=== PATIENT | male | born 1940 | race Caucasian/White ===

== ENCOUNTER → 2021-06-20 09:48 | Outpatient (BNVA) | payer MEDICARE, SELFPAY | PROVIDERS: PCP Internal Medicine; Visit Provider Nurse Practitioner Family | DX: G25.9 Extrapyramidal and movement disorder, unspecified (principal); G47.33 Obstructive sleep apnea (adult) (pediatric); G62.9 Polyneuropathy, unspecified; F41.9 Anxiety disorder, unspecified | CPT/HCPCS: 99212 ==

== ENCOUNTER → 2021-10-11 13:10 | Outpatient (BNVA) | payer MEDICARE, SELFPAY | PROVIDERS: PCP Internal Medicine; Visit Provider Nurse Practitioner Family | DX: G25.9 Extrapyramidal and movement disorder, unspecified (principal); G62.9 Polyneuropathy, unspecified; G47.33 Obstructive sleep apnea (adult) (pediatric) | CPT/HCPCS: 99212 ==

== ENCOUNTER → 2022-01-24 13:04 | Outpatient (BNVA) | payer MEDICARE, SELFPAY | PROVIDERS: PCP Internal Medicine; Visit Provider Nurse Practitioner Family | DX: G25.9 Extrapyramidal and movement disorder, unspecified (principal); G47.33 Obstructive sleep apnea (adult) (pediatric); F41.9 Anxiety disorder, unspecified; Z79.899 Other long term (current) drug therapy | CPT/HCPCS: 99212 ==

== ENCOUNTER → 2022-05-26 10:56 | Outpatient (BNVA) | payer MEDICARE, SELFPAY | PROVIDERS: PCP Internal Medicine; Visit Provider Nurse Practitioner Family | DX: G25.9 Extrapyramidal and movement disorder, unspecified (principal); G47.33 Obstructive sleep apnea (adult) (pediatric); H53.2 Diplopia | CPT/HCPCS: 99212 ==

== ENCOUNTER → 2022-09-01 09:11 | Outpatient (BNVA) | payer MEDICARE, SELFPAY | PROVIDERS: PCP Internal Medicine; Visit Provider Nurse Practitioner Family | DX: G25.9 Extrapyramidal and movement disorder, unspecified (principal) | CPT/HCPCS: 99212 ==

== ENCOUNTER 2022-12-31 11:18 | Outpatient (AMB) | payer MEDICARE, SELFPAY ==
--- NOTE | 2022-12-31 11:40 | MHC.OFFVIS ---
Intake Vital Signs 12/31/22 11:49 Height 5 ft 7 in Weight 194 lb 2 oz BMI 30.4 BP 138/70 Blood Pressure Location Rt brachial Position Sitting Pulse 101 H Pulse Source Pulse Oximeter Pulse Oximetry (%) 97 Oxygen Delivery Method Room Air Intake Visit Reasons: 4m follow up - LVM Intake Note: patient presents for 4 month follow up, Patient states Allergies cyclophosphamide [From Cytoxan] Allergy (Mild, Verified 12/31/22 11:50) Unknown doxycycline Allergy (Mild, Verified 12/31/22 11:50) unknwon fenofibrate [From Tricor] Allergy (Mild, Verified 12/31/22 11:50) unknown gemfibrozil Allergy (Mild, Verified 12/31/22 11:50) unknown Penicillins Allergy (Mild, Verified 12/31/22 11:50) unknown tacrolimus Allergy (Mild, Verified 12/31/22 11:50) unknown Medication List - Last Reconciled 12/31/22 by ABHISHEK Ochoa albuterol sulfate 90 mcg/actuation 0 mcg inhalation alfuzosin ER 10 mg PO DAILY allopurinol 300 mg PO DAILY apixaban (Eliquis) 5 mg PO BID blood sugar diagnostic (Contour Next Test Strips) As directed budesonide-formoterol 160-4.5 mcg/actuation (Symbicort) 2 puffs inhalation BID calcifediol ER (Rayaldee) 30 mcg PO DAILY carbidopa-levodopa 25-100 mg 1.5 tabs PO TID 90 days clotrimazole-betamethasone 1-0.05 % appl topical escitalopram oxalate 10 mg PO DAILY finasteride 5 mg PO DAILY hydrocortisone 2.5% [place] BID levocetirizine 5 mg PO DAILY levothyroxine 125 mcg PO DAILY losartan 25 mg PO DAILY olopatadine 0.1% 1 drp ophthalmic (eye) BID omeprazole 20 mg PO DAILY tramadol 50 mg PO PRN HPI HPI Comments History of Present Illness Details 82 -yr-old male presents for f/u visit. Pt denies any significant interval medical history changes. Pt reports the following interval medical history changes: [] Pt's current PDism medication regimen: CD-LD 25-100mg 1.5-2 tabs tid Pt's primary concerns are: He is still quite anxious, tending to not want to leave the house. His RLE pains and needles pain and shocking pains are more bothersome. In the past Gabapentin and Pregabalin were not helpful. He is complaint w/ escitalopram. He has been sliding out of bed in the am- at times. thinks he is getting up too quickly- maybe worried he won't make it to the bathroom in time. He does have a urinal and pull-ups. Pt notes that it is just difficult to move slowly when he always used to be able to move quickly. He is going to start the BIG program. [facility] Surgical History H/O heart surgery H/O shoulder surgery History of hip replacement Family History Maternal Grandfather Family history of thyroid problem Mother Asthma Family/Other Breast cancer Social History Alcohol intake: never Patient Tobacco Use Status: Former Tobacco user Quit Date: 55 years ago Review of Systems Const All systems reviewed & are unremarkable except as noted in HPI and below Physical Exam Vital Signs: Last Vital Signs Pulse 101 H 12/31/22 11:49 BP 138/70 12/31/22 11:49 Pulse Ox 97 12/31/22 11:49 Oxygen Delivery Method Room Air 12/31/22 11:49 BMI result Body Mass Index 30.4 Const General: cooperative and no acute distress Resp Effort & Inspection: normal respiratory effort and able to speak in complete sentences Neuro Other: Mild decreased expression and blink. Mild hypophonia. BUE postural tremor, R > L. BUE mild bradykinesia, R > L. BUE rigidity, R > L. BLE MS 5/5. Zack patellar DTRs- dulled Slow to stand, slight stoop, short steps, wide based gait, steady w/ walker. General: patient oriented x3 Assessment & Plan Assessment & Plan (1) Extrapyramidal and movement disorder: Comment: tremor, rigidity, gait changes. Responsive to levodopa and ropinirole. Randell scan- normal (September 2020). Code(s): G25.9 - Extrapyramidal and movement disorder, unspecified (2) Polyneuropathy: Code(s): G62.9 - Polyneuropathy, unspecified (3) Anxiety: Code(s): F41.9 - Anxiety disorder, unspecified (4) Obstructive sleep apnea: Comment: previously f/b Dr Hoff Code(s): G47.33 - Obstructive sleep apnea (adult) (pediatric) Plan Trial RLE paresthesias- Trial Duloxetine 30mg qhs- may help anxiety as well. May decrease escitalopram to 5mg qd. Previosu trials- Gabapentin, Pregabalin- ineffective. ? For PDism: Continue Sinemet 25-100mg 1.5 tabs tid, may take extra 1/2 tab midday as needed- from protein. Use cane/walker. Continue home PT exercises. Concur w/ starting PD BIG program. ? For WINNIE: Will request complaince report CPAP 10 cmH2O nightly > 4 hrs- will adjust ESR from 1 to 3, as pt previously had good effect from us. Future considerations: PAP titration study. ? For cognition: Continue optimizing cognitive, social, and physically activating activities. For diplopia- Monitor clinically. ? f/u in 3-4 months or sooner prn. Medications: New duloxetine 30 mg PO DAILY 30 days 30 caps 3RF Coding Level of Care Code Est Pt Level 4 (08894) Diagnoses Extrapyramidal and movement disorder G25.9 Polyneuropathy G62.9 Anxiety F41.9 Obstructive sleep apnea G47.33
[2022-12-31 11:49] VITALS: BP 138/70; PULSE 101; O2SAT 97; BMI 30.4
== END 2022-12-31 13:43 | disposition home or self-care (01) ==
PROVIDERS: Visit Provider Nurse Practitioner Family
DX: G25.9 Extrapyramidal and movement disorder, unspecified (principal); G62.9 Polyneuropathy, unspecified; F41.9 Anxiety disorder, unspecified; G47.33 Obstructive sleep apnea (adult) (pediatric)
CPT/HCPCS: 99214

== ENCOUNTER → 2022-12-31 11:18 | Outpatient (BNVA) | payer MEDICARE, SELFPAY | PROVIDERS: Visit Provider Nurse Practitioner Family | DX: G25.9 Extrapyramidal and movement disorder, unspecified (principal); G62.9 Polyneuropathy, unspecified; F41.9 Anxiety disorder, unspecified; G47.33 Obstructive sleep apnea (adult) (pediatric) | CPT/HCPCS: 99212 ==

== ENCOUNTER 2023-12-29 08:45 | Outpatient (AMB) | payer MEDICARE, SELFPAY ==
[2023-12-29 09:03] VITALS: BP 118/70; PULSE 80; O2SAT 97
--- NOTE | 2023-12-29 09:03 | MHC.OFFVIS ---
Vital Signs 12/29/23 09:03 Height 5 ft 7 in BP 118/70 Blood Pressure Location Rt brachial Position Sitting Pulse 80 Pulse Source Pulse Oximeter Pulse Oximetry (%) 97 Oxygen Delivery Method Room Air Intake Visit Reasons: Follow Up-LVM Intake Note: Patient presents for follow up. Patient may need a adjustment with carbidopa Allergies cyclophosphamide [From Cytoxan] Allergy (Mild, Verified 12/29/23 09:10) Unknown doxycycline Allergy (Mild, Verified 12/29/23 09:10) unknwon fenofibrate [From Tricor] Allergy (Mild, Verified 12/29/23 09:10) unknown gemfibrozil Allergy (Mild, Verified 12/29/23 09:10) unknown Penicillins Allergy (Mild, Verified 12/29/23 09:10) unknown tacrolimus Allergy (Mild, Verified 12/29/23 09:10) unknown Medication List - Last Reconciled 12/29/23 by ABHISHEK Ochoa albuterol sulfate 90 mcg/actuation 0 mcg inhalation alfuzosin ER 10 mg PO DAILY allopurinol 300 mg PO DAILY apixaban (Eliquis) 5 mg PO BID blood sugar diagnostic (Contour Next Test Strips) As directed budesonide-formoterol 160-4.5 mcg/actuation (Symbicort) 2 puffs inhalation BID calcifediol ER (Rayaldee) 30 mcg PO DAILY carbidopa-levodopa 25-100 mg 1.5 tabs PO TID 90 days clotrimazole-betamethasone 1-0.05 % appl topical duloxetine 30 mg PO DAILY 30 days escitalopram oxalate 10 mg PO DAILY finasteride 5 mg PO DAILY hydrocortisone 2.5% [place] BID levocetirizine 5 mg PO DAILY levothyroxine 125 mcg PO DAILY losartan 25 mg PO DAILY olopatadine 0.1% 1 drp ophthalmic (eye) BID omeprazole 20 mg PO DAILY torsemide 20 mg PO BID tramadol 50 mg PO PRN HPI Comments Details: 83-yr-old male presents for f/u visit. Pt is accompanied by his . Pt's reports pt has been in and out of the hospital and rehab since May. He has had repeated falls, had aortic valve replacement, had CHF. Pt returned home a week ago from a 6 week rehab stay. Home Nsg has discharged him. 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 Pt and are wondering if pt needs to have a dose increase in his CD-LD. Pt is noticing increased tremor. He has been having throbbing, shocking, numbness in the right hand, as well as swelling at night. He has limited hand grasp, but denies weakness per se. wonders if this was related to a fall where he landed onto his right arm/elbow. RLE pains and needles pain and shocking pains are not as bad. He is currently walking w/ a walker in the house, and w/c for longer distances. Denies dysphagia. Denies lightheadedness. Has been having constipation- senna and colace helps. Sleeping ok. Has not been using his CPAP lately. Pt states memory is not bad. feels memory is a little worse. No current hallucinations. During one of the hospitalizations- he did have visual hallucinations- seeing people running in front of him. Was on oxycodone at the time. No falls since being home or while at rehab. He is still quite scared/anxious about falling. Pt's current PD medication regimen: CD-LD 2 tabs TID. Escitaolpram 10mg qd- for anxiety In the past Gabapentin and Pregabalin were not helpful. . PFSH Surgical History H/O heart surgery History of hip replacement H/O shoulder surgery Family History Maternal Grandfather Family history of thyroid problem Mother Asthma Family/Other Breast cancer Social History Alcohol intake: never Patient Tobacco Use Status: Former Tobacco user Review of Systems Const All systems reviewed & are unremarkable except as noted in HPI and below Physical Exam Vital Signs: Last Vital Signs Pulse 80 12/29/23 09:03 BP 118/70 12/29/23 09:03 Pulse Ox 97 12/29/23 09:03 Oxygen Delivery Method Room Air 12/29/23 09:03 Const General: cooperative and no acute distress Resp Effort & Inspection: normal respiratory effort and able to speak in complete sentences Neuro Other: General: A&O x's 3 Decreased expression and blink. Mild hypophonia. RUE rest tremor BUE mild postural tremor, R > L. Right hand- decreased hand grasp, Right dorsal hand- painful to touch, mild swelling, Sharp and Soft sensatio intact. Positive Tinnel and Medial compression test. Rigidity prevents Phalen exam. BUE bradykinesia, R > L. BUE rigidity, R > L. BLE MS 5/5. BUE DTRs 2+. Zack patellar DTRs- dulled Sitting upright in w/c. Assessment & Plan Assessment & Plan (1) Extrapyramidal and movement disorder: Comment: tremor, rigidity, gait changes. Responsive to levodopa and ropinirole. Randell scan- normal (September 2020). Code(s): G25.9 - Extrapyramidal and movement disorder, unspecified Category: Medical (2) Right hand pain: Code(s): M79.641 - Pain in right hand Category: Medical (3) Pain and numbness of right upper extremity: Code(s): M79.601 - Pain in right arm; R20.0 - Anesthesia of skin Category: Medical (4) Obstructive sleep apnea: Comment: previously f/b Dr Hoff Code(s): G47.33 - Obstructive sleep apnea (adult) (pediatric) Category: Medical (5) Anxiety: Code(s): F41.9 - Anxiety disorder, unspecified Category: Medical (6) Polyneuropathy: Code(s): G62.9 - Polyneuropathy, unspecified Category: Medical Plan For RUE pain: RUE EMG/NCS Right hand and wrist X-ray. Can try OTC doclofenac gel Trial OTC wrist splint at night Trial Nervive nerve relief- monitor for increased brusing. Consider referal to ortho upon review- pt would prefer Dr Lozada. RLE paresthesias- Improived, will monitor. Pt unsure if tried or effect of trail of Duloxetine 30mg qhs.. Previosu trials- Gabapentin, Pregabalin- ineffective. ? For PDism: Increase Sinemet 25-100mg from 2 tabs tid to 2 tabs QID- pt enough supply at home, order written but will call when refill needed. Use walker and w/c for longer distances. Continue home PT and ? For WINNIE: Will request complaince report CPAP 10 cmH2O nightly > 4 hrs- will adjust ESR from 1 to 3, as pt previously had good effect from us. Future considerations: PAP titration study. ? For cognition: Continue optimizing cognitive, social, and physically activating activities. ? For diplopia- Monitor clinically. ? f/u in 3-4 months or sooner prn. Orders: Orders XR hand wrist RT Today M79.641 - Pain in right hand NE nerve conduction velocity Today M79.601 - Pain in right arm, M79.641 - Pain in right hand, R20.0 - Anesthesia of skin XR hand RT min 3V Today M79.641 - Pain in right hand NE electromyogram (EMG) Today M79.601 - Pain in right arm, M79.641 - Pain in right hand, R20.0 - Anesthesia of skin Medications: Changed From carbidopa-levodopa 25-100 mg may take extra 1/2 per day prn 2 tabs PO QID 90 days 720 tabs 1RF To carbidopa-levodopa 25-100 mg 2 tabs PO QID 90 days 720 tabs 1RF Coding Level of Care Code Est Pt Level 4 (91888) Diagnoses Extrapyramidal and movement disorder G25.9 Right hand pain M79.641 Pain and numbness of right upper extremity M79.601; R20.0 Obstructive sleep apnea G47.33 Anxiety F41.9 Polyneuropathy G62.9
== END 2023-12-29 10:06 | disposition home or self-care (01) ==
PROVIDERS: PCP Internal Medicine; Visit Provider Nurse Practitioner Family
DX: G25.9 Extrapyramidal and movement disorder, unspecified (principal); M79.641 Pain in right hand; M79.601 Pain in right arm; R20.0 Anesthesia of skin; G47.33 Obstructive sleep apnea (adult) (pediatric); F41.9 Anxiety disorder, unspecified; G62.9 Polyneuropathy, unspecified
CPT/HCPCS: 99214

== ENCOUNTER → 2023-12-29 08:45 | Outpatient (BNVA) | payer MEDICARE, SELFPAY | PROVIDERS: PCP Internal Medicine; Visit Provider Nurse Practitioner Family | DX: G25.9 Extrapyramidal and movement disorder, unspecified (principal); G47.33 Obstructive sleep apnea (adult) (pediatric); G62.9 Polyneuropathy, unspecified; M79.641 Pain in right hand; M79.601 Pain in right arm; R20.0 Anesthesia of skin; F41.9 Anxiety disorder, unspecified | CPT/HCPCS: 99212 ==

== ENCOUNTER 2024-10-20 10:53 | Outpatient (AMB) | payer MEDICARE, SELFPAY ==
--- NOTE | 2024-10-20 11:26 | MHC.OFFVIS ---
Vital Signs 10/20/24 11:27 Height 5 ft 7 in Weight 190 lb BMI 29.8 BP 138/76 Blood Pressure Location Lt brachial Position Sitting Pulse 80 Pulse Source Pulse Oximeter Pulse Oximetry (%) 98 Oxygen Delivery Method Room Air Intake Visit Reasons: Follow up Intake Note: Patient here for a follow-up, feeling well. 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 Accompanied by: Spouse Allergies cyclophosphamide [From Cytoxan] Allergy (Mild, Verified 10/20/24 11:35) Unknown doxycycline Allergy (Mild, Verified 10/20/24 11:35) unknwon fenofibrate [From Tricor] Allergy (Mild, Verified 10/20/24 11:35) unknown gemfibrozil Allergy (Mild, Verified 10/20/24 11:35) unknown Penicillins Allergy (Mild, Verified 10/20/24 11:35) unknown tacrolimus Allergy (Mild, Verified 10/20/24 11:35) unknown Medication List - Last Reconciled 10/20/24 by ABHISHEK Ochoa albuterol sulfate 90 mcg/actuation 0 mcg inhalation alfuzosin ER 10 mg PO DAILY allopurinol 300 mg PO DAILY apixaban (Eliquis) 5 mg PO BID blood sugar diagnostic (Contour Next Test Strips) As directed budesonide-formoterol 160-4.5 mcg/actuation (Symbicort) 2 puffs inhalation BID calcifediol ER (Rayaldee) 30 mcg PO DAILY carbidopa-levodopa 25-100 mg 2 tabs PO QID 90 days clotrimazole-betamethasone 1-0.05 % appl topical duloxetine 30 mg PO DAILY 30 days escitalopram oxalate 10 mg PO DAILY finasteride 5 mg PO DAILY hydrocortisone 2.5% [place] BID levocetirizine 5 mg PO DAILY levothyroxine 125 mcg PO DAILY losartan 25 mg PO DAILY olopatadine 0.1% 1 drp ophthalmic (eye) BID omeprazole 20 mg PO DAILY torsemide 20 mg PO BID tramadol 50 mg PO PRN Do you need a note to return to daycare/school/sports/work: No HPI Comments Details: 84-yr-old male presents for f/u visit for Parkinsonism. Pt is accompanied by his . Pt's reports that pt was admitted [facility] in Jan- s/p having repeated falls- had fallen 3 times in 1 week while home. Needs assist w/ ADLs. Has some difficulty w/ fine motor skills- such as getting food on a fork. Denies dysphagia. Denies droolomg. Tremor varies- sometimes good, sometimes bad- putting his hand down x's 10 seconds does help. He states he has a little generalized stiffness, but is more bothered by muscle cramps in his legs- used to take quinine. Continues to have BUE pins and needles- notices especially in the mroning, and he does some hand exercises/ROM- and this stops. He is now w/c bound, not walking at all. Requires assist to transfer. Denies falls since being in the rehab. Endorses mild occasional orthostatic lightheadedness. Endorses constipation- but senna and MOM helps. Sleeping well. Has not been using his CPAP. notes that pt may stare off into space. Pt states memory is excellent . reports pt has STM difficulties, but LTM is very good. Patient can still be quite anxious and fearful of falling- status post the previous fall down the escalator. Pt may see bugs falling from the ceiling- he states he was told this is tiling . These are not bothersome. Pt's current PD medication regimen: CD-LD 2 tabs QID. Escitaolpram 10mg qd- for anxiety In the past Gabapentin and Pregabalin were not helpful. . PFSH Surgical History H/O heart surgery History of hip replacement H/O shoulder surgery Family History Maternal Grandfather Family history of thyroid problem Mother Asthma Family/Other Breast cancer Social History Alcohol intake: never Patient Tobacco Use Status: Former Tobacco user Physical Exam Vital Signs: Last Vital Signs Pulse 80 10/20/24 11:27 BP 138/76 10/20/24 11:27 Pulse Ox 98 10/20/24 11:27 Oxygen Delivery Method Room Air 10/20/24 11:27 BMI result Body Mass Index 29.8 Const General: cooperative and no acute distress Resp Effort & Inspection: normal respiratory effort and able to speak in complete sentences Neuro Other: General: A&O x's 2- pt unable to accurately state the date/year. Decreased expression and blink. Mild hypophonia. No RUE rest tremor observed today RUE mild wing beat postural tremor. FFM- BUE bradykinesia, R > L. Foot taps- BLE marked bradykinesia- and more difficulty following exam instructions. BUE marked rigidity, R > L. Sitting upright in w/c. Assessment & Plan Assessment & Plan (1) Parkinson's disease without dyskinesia: Comment: tremor, rigidity, gait changes. Responsive to levodopa and ropinirole. Randell scan- normal (September 2020). Code(s): G20.A1 - Parkinson's disease without dyskinesia, without mention of fluctuations Category: Medical Qualifiers: Fluctuating manifestations: without fluctuating manifestations Qualified Code(s): G20.A1 - Parkinson's disease without dyskinesia, without mention of fluctuations (2) Pain and numbness of right upper extremity: Code(s): M79.601 - Pain in right arm; R20.0 - Anesthesia of skin Category: Medical (3) Obstructive sleep apnea: Comment: No longer using his CPAP. Previously f/b Dr Hoff Code(s): G47.33 - Obstructive sleep apnea (adult) (pediatric) Category: Medical (4) Anxiety: Code(s): F41.9 - Anxiety disorder, unspecified Category: Medical (5) Polyneuropathy: Code(s): G62.9 - Polyneuropathy, unspecified Category: Medical Plan For PDism: Patient's symptoms have progressed since his last visit here over 1 year ago, he has more pronounced bradykinesia, rigidity, no longer walking, cognitive difficulties, and now has some endorsement of visual hallucinations. Increase Sinemet 25-100mg from 2 tabs QID to 2 tabs 5 times per day (given at least 30 minutes before taking full meal or protein intake)- in hopes this reduces rigidity, bradykinesia, leg cramps, UE numbness/tingling. Advised to monitor for worsening hallucinations With increasing carbidopa levodopa dose, we will request PT eval and treat through his SNF. Start magnesium glycinate 400 mg daily at bedtime- in hopes this helps leg cramps. For UE paresthesias:: Previously ordered RUE EMG/NCS- not completed. 12/29/2023 right hand x-ray-no acute fractures, degenerative arthritic changes, no erosive changes, carpal alignment ?suggestive of scapholunate advanced collapse ?. If symptoms worsen, consider referral back for EMG/NCS and/or to orthopedics- patient's preference would be Dr Lozada. RLE paresthesias- Improved, will monitor. Pt unsure if tried or effect of trail of Duloxetine 30mg qhs.. Previosu trials- Gabapentin, Pregabalin- ineffective. ? For WINNIE: Patient is no longer using his CPAP therapy. ? For cognition: Continue optimizing cognitive, social, and physically activating activities. ? For diplopia- Monitor clinically. ? f/u in 3-6months or sooner prn. Coding Level of Care Code Est Pt Level 4 (83653) Complex EM visit Add On G2211 Diagnoses Parkinson's disease without dyskinesia or fluctuating manifestations G20.A1 Fluctuating manifestations: without fluctuating manifestations Pain and numbness of right upper extremity M79.601; R20.0 Obstructive sleep apnea G47.33 Anxiety F41.9 Polyneuropathy G62.9
[2024-10-20 11:27] VITALS: BP 138/76; PULSE 80; O2SAT 98; BMI 29.8
--- OUTSIDE RECORDS SUMMARY | 2024-10-20 12:51 | XMS_ITS | Encounter Summary ---
Author Organization [facility] Address [address] [place] [address] Care Team Providers Care Medical Registrar Name Role Phone Rhonda Hi MD Primary Care Provider [phone] Encounter Details Date Type Department Care Team (Late st Contact Info) Description 05/24/2024 Lab Requisition [facility] [address] [place] [address] Rhonda Hi MD [address] [place] [id number] Chronic kidney disease, unspecified; Heart failure, unspecified (CMS/HCC V24, CMS/HCC V28) Social History Tobacco Use Types Packs/Day Years Used Date Smoking Tobacco: Former Cigarettes Q uit: 05/11/1977 Smokeless Tobacco: Never Alcohol Use Standard Drinks/Week Comments No 0 (1 standard drink = 0.6 oz pur e alcohol) Sex and Gender Information Value Date Recorded Sex Assigned at Not on file Legal Sex Male 4:55 PM EST Gender Identity Not on file Sexual Orientation Not on file documented as of this encounter Plan of Treatment Not on file documented as of this encounter Procedures Procedure Name Priority Date/Time Associated Diagnosis Comments BASIC METABOLIC PANEL Routine 05/24/2024 4:49 AM EST Chronic kidney disease, unspecified Heart failure, unspecified (CMS/HCC) documented in this encounter Results * (ABNORMAL) Basic metabolic panel (05/24/2024 4:49 AM EST) Sodium 139 133 - 145 mmol/L LAB CHEMISTRY METHOD 05/24/2024 7:37 AM EST [facility] [address] [facility] Potassium 4.4 3.5 - 5.5 mmol/L LAB CHEMISTRY METHOD 05/24/2024 7:[address] [facility] Chloride 107 96 - 110 mmol/L LAB CHEMISTRY METHOD 05/24/2024 7:[address] [facility] CO2 23 21 - 32 mmol/L LAB CHEMISTRY METHOD 05/24/2024 7:[address] [facility] Anion Gap 9 3 - 11 LAB CHEMISTRY METHOD 05/24/2024 7:[address] [facility] Glucose 102(H) 70 - 100 mg/dL LAB CHEMISTRY METHOD 05/24/2024 7:[address] [facility] BUN 71(H) 5 - 25 mg/dL LAB CHEMISTRY METHOD 05/24/2024 7:[address] [facility] Creatinine 3.88(H) 0.70 - 1.30 mg/dL LAB CHEMISTRY METHOD 05/24/2024 7:[address] [facility] eGFR 15(L) >=60 mL/min/1. 73m2 LAB CHEMISTRY METHOD 05/24/2024 7:[address] [facility] Comment:Calculation based on the??Chronic Kidney Disease Epidemiology Collaboration (CKD-EPI) equation refit??without adjustment for race. BUN/Creatinine Ratio 18.3 LAB CHEMISTRY METHOD 05/24/2024 7:[address] [facility] Calcium 8.9 8.5 - 10.5 mg/dL LAB CHEMISTRY METHOD 05/24/2024 7:[address] [facility] Blood Venous blood specimen / Unknown Venipuncture / Unknown 05/24/2024 4:49 AM EST 05/24/2024 6:54 AM EST us Rhonda Hi MD LAB BLOOD ORDERABLES Final Resu lt [facility] [address] [place] [address], [place] [phone] documented in this encounter Visit Diagnoses Diagnosis Chronic kidney disease, unspecified Heart failure, unspecified (CMS/[facility] V24, CMS/[facility]ER[facility] V28) Heart failure, unspecified documented in this encounter Care Teams Medical Registrar Relationship Specialty Start Date End Date Rhonda Hi MD [address] [place] [id number] PCP - General Hospitalist Medicine 05/23/24 documented as of this encounter
== END 2024-10-20 12:53 | disposition home or self-care (01) ==
LOC: HO.HSMS 10:53
PROVIDERS: PCP Internal Medicine; Visit Provider Nurse Practitioner Family
DX: G20.A1 Parkinson's disease without dyskinesia, without mention of fluctuations (principal); M79.601 Pain in right arm; R20.0 Anesthesia of skin; G47.33 Obstructive sleep apnea (adult) (pediatric); F41.9 Anxiety disorder, unspecified; G62.9 Polyneuropathy, unspecified
CPT/HCPCS: 99214; G2211

== ENCOUNTER → 2024-10-20 10:53 | Outpatient (BNVA) | payer MEDICARE, SELFPAY | PROVIDERS: PCP Internal Medicine; Visit Provider Nurse Practitioner Family | DX: G20.A1 Parkinson's disease without dyskinesia, without mention of fluctuations (principal); G47.33 Obstructive sleep apnea (adult) (pediatric); G62.9 Polyneuropathy, unspecified; M79.601 Pain in right arm; R20.0 Anesthesia of skin; F41.9 Anxiety disorder, unspecified | CPT/HCPCS: 99212 ==